=== PATIENT | female | born 1955 | race Asian ===

== ENCOUNTER 2018-07-04 04:03 | Inpatient (IN) | payer OTHER ==
[2018-07-04] MEDS ORDERED: ONDANSETRON 4 MG INJ IV ×2 (05:00→20:00)
[2018-07-04] MEDS ORDERED: NACL 0.9% 3 ML SYG IV (05:00)
[2018-07-04] MEDS ORDERED: morphine 2 MG INJ IV (05:00)
[2018-07-04] MEDS ORDERED: BISACODYL (EC) 5 MG TAB PO (05:00)
[2018-07-04] MEDS ORDERED: DOCUSATE SODIUM 100 MG CAP PO (05:00)
[2018-07-04] MEDS ORDERED: ACETAMINOPHEN 325 MG TAB PO (05:00)
[2018-07-04 05:25] LABS: ADD MAN DIFF? NO
[2018-07-04 05:33] LABS: BASOPHILS % 0.2 % (0.0-2.0); HEMATOCRIT 40.4 % (37.0-47.0); HEMOGLOBIN 13.9 g/dl (12.0-16.0); LYMPHOCYTES # 1.1 10^3/ul (0.8-2.9); MEAN CORPUSCULAR HEMOGLOBIN 29.8 pg (29.0-33.0); MEAN CORPUSCULAR HGB CONC 34.4 g/dl (32.0-37.0); MEAN CORPUSCULAR VOLUME 86.7 fl (82.0-101.0); MEAN PLATELET VOLUME 10.3 fl (7.4-10.4); MONOCYTE # 0.9 10^3/ul (0.3-0.9); NEUTROPHILS % 86.5 % (39.0-77.0); PLATELET COUNT 195 10^3/UL (140-415); RED BLOOD COUNT 4.66 10^6/ul (4.20-5.40); RED CELL DISTRIBUTION WIDTH 12.3 % (11.5-14.5)
[2018-07-04 05:47] LABS: HEMOGLOBIN A1C 5.7 % (0-5.9)
[2018-07-04 05:48] LABS: MAGNESIUM 1.7 mg/dl (1.7-2.5)
[2018-07-04 05:49] LABS: ALANINE AMINOTRANSFERASE 12 IU/L (13-69); ALBUMIN 4.4 g/dl (3.3-4.9); ALBUMIN/GLOBULIN RATIO 1.37; ALKALINE PHOSPHATASE 70 IU/L (42-121); ANION GAP 18 (8-16); ASPARTATE AMINO TRANSFERASE 23 IU/L (15-46); BILIRUBIN,INDIRECT 1.1 mg/dl (0-1.1); BILIRUBIN,TOTAL 1.1 mg/dl (0.2-1.3); BLOOD UREA NITROGEN 12 mg/dl (7-20); CALCIUM 8.8 mg/dl (8.4-10.2); CARBON DIOXIDE 23 mmol/L (21-31); CHLORIDE 104 mmol/L (97-110); CREATININE 0.52 mg/dl (0.44-1.00); GLUCOSE 126 mg/dl (70-220); POTASSIUM 3.5 mmol/L (3.5-5.1); SODIUM 141 mmol/L (135-144); TOTAL PROTEIN 7.6 g/dl (6.1-8.1)
[2018-07-04] MEDS: PIPER-TAZO 3.375 GM IV (PMX) 100 ML IVPB ×3 (06:27→18:17)
[2018-07-04] MEDS: SOD CHLORIDE 0.9% 1,000 ML IV ×2 (06:28→17:17)
[2018-07-04] MEDS ORDERED: KETOROLAC 30 MG INJ IV (07:00)
[2018-07-04] MEDS ORDERED: ONDANSETRON 4 MG INJ (19:00)
[2018-07-04] MEDS ORDERED: SUGAMMADEX SODIUM 200 MG/2 ML VIAL IV (19:00)
[2018-07-04] MEDS ORDERED: ROCURONIUM 50 MG INJ (19:00)
[2018-07-04] MEDS ORDERED: MIDAZOLAM 1 MG/ML 2 ML INJ (19:00)
[2018-07-04] MEDS ORDERED: DEXAMETHASONE 4 MG/ML 1 ML INJ (19:00)
[2018-07-04] MEDS ORDERED: FENTAnyl 50 MCG/ML VIAL (19:00)
[2018-07-04] MEDS ORDERED: LABETALOL HCL 20MG INJ (19:00)
[2018-07-04] MEDS ORDERED: PROPOFOL 200 MG INJ (19:00)
[2018-07-04] MEDS ORDERED: LIDOCAINE 2% (SDV) 5 ML INJ (19:00)
[2018-07-04] MEDS ORDERED: ALBUTEROL 0.083% (NEB) 2.5 MG/3 ML AMP HHN (20:00)
[2018-07-04] MEDS ORDERED: DIPHENHYDRAMINE 50 MG INJ IV (20:00)
[2018-07-04] MEDS ORDERED: EPHEDrine SULFATE 50 MG/5 ML SYG IV (20:00)
[2018-07-04] MEDS ORDERED: FENTAnyl 50 MCG/ML VIAL IV ×3 (20:00)
[2018-07-04] MEDS ORDERED: TRIMETHOBENZAMIDE 100 MG/ML VIAL IM (20:00)
[2018-07-04] MEDS ORDERED: MIDAZOLAM 1 MG/ML 2 ML INJ IV (20:00)
[2018-07-04] MEDS ORDERED: IPRATROPIUM (NEB) 0.5 MG/2.5 ML AMP HHN (20:00)
[2018-07-04] MEDS ORDERED: MEPERIDINE 25 MG INJ IV (20:00)
[2018-07-04] MEDS ORDERED: HYDROmorphONE 1 MG/5 ML IV SYRINGE IV ×3 (20:00)
[2018-07-04] MEDS ORDERED: hydrALAzine 20 MG INJ IV (20:00)
[2018-07-04] MEDS: LIDOCAINE 1% (MPF) 30 ML INJ (20:24)
[2018-07-04] MEDS: BUPIVACAINE 0.25%/EPI (SDV) 30 ML INJ (20:24)
[2018-07-04] MEDS: LABETALOL HCL 20MG INJ IV (21:31)
[2018-07-05] MEDS: PIPER-TAZO 3.375 GM IV (PMX) 100 ML IVPB ×4 (00:13→18:00)
[2018-07-05] MEDS: SOD CHLORIDE 0.9% 1,000 ML IV (03:59)
[2018-07-05 08:07] LABS: ADD MAN DIFF? NO
[2018-07-05 08:16] LABS: WHITE BLOOD COUNT 8.2 10^3/ul (4.8-10.8)
[2018-07-05 08:16] LABS: BASOPHILS % 0.1 % (0.0-2.0); HEMATOCRIT 39.2 % (37.0-47.0); HEMOGLOBIN 13.1 g/dl (12.0-16.0); LYMPHOCYTES % 12.3 % (15.0-51.0); MEAN CORPUSCULAR HEMOGLOBIN 29.7 pg (29.0-33.0); MEAN CORPUSCULAR HGB CONC 33.4 g/dl (32.0-37.0); MEAN CORPUSCULAR VOLUME 88.9 fl (82.0-101.0); MEAN PLATELET VOLUME 10.5 fl (7.4-10.4); MONOCYTE # 0.2 10^3/ul (0.3-0.9); MONOCYTES % 2.1 % (0.0-11.0); NEUTROPHILS % 85.3 % (39.0-77.0); PLATELET COUNT 180 10^3/UL (140-415); RED BLOOD COUNT 4.41 10^6/ul (4.20-5.40); RED CELL DISTRIBUTION WIDTH 12.6 % (11.5-14.5)
[2018-07-05 08:33] LABS: CHOL/HDL RATIO 3.2 RATIO; CHOLESTEROL 197 mg/dl (100-200); HDL CHOLESTEROL 61 mg/dl (35-98); LDL CHOLESTEROL,CALCULATED 124 mg/dl; TRIGLYCERIDES 59 mg/dl (0-149)
[2018-07-05 08:33] LABS: PHOSPHORUS 4.3 mg/dl (2.5-4.9)
[2018-07-05 08:51] LABS: ALANINE AMINOTRANSFERASE 13 IU/L (13-69); ALBUMIN 3.9 g/dl (3.3-4.9); ALBUMIN/GLOBULIN RATIO 1.21; ALKALINE PHOSPHATASE 56 IU/L (42-121); ANION GAP 15 (8-16); ASPARTATE AMINO TRANSFERASE 20 IU/L (15-46); BILIRUBIN,INDIRECT 0.9 mg/dl (0-1.1); BILIRUBIN,TOTAL 0.9 mg/dl (0.2-1.3); BLOOD UREA NITROGEN 12 mg/dl (7-20); CALCIUM 8.7 mg/dl (8.4-10.2); CARBON DIOXIDE 24 mmol/L (21-31); CHLORIDE 106 mmol/L (97-110); GLUCOSE 126 mg/dl (70-220); POTASSIUM 3.8 mmol/L (3.5-5.1); SODIUM 141 mmol/L (135-144); TOTAL PROTEIN 7.1 g/dl (6.1-8.1)
[2018-07-05 09:32] LABS: CANCER ANTIGEN 125 < 5.5 U/ml (0.0-35.0)
[2018-07-05] MEDS: hydrALAzine 20 MG INJ IV (19:45)
[2018-07-06 12:07] LABS: CA27.29 <8 U/mL (<38)
[2018-07-10 00:32] LABS: CANCER ANTIGEN 15-3 6 U/mL (<32)
== END 2018-07-05 21:15 | disposition home or self-care (01) | DRG 343 ==
LOC: 2NE 04:03
PROC: 0DTJ4ZZ Resection of Appendix, Percutaneous Endoscopic Approach (ICD-10-PCS; principal; 2018-07-04 19:52)
DX: K35.80 Unspecified acute appendicitis (principal); D72.829 Elevated white blood cell count, unspecified; D25.9 Leiomyoma of uterus, unspecified; K76.0 Fatty (change of) liver, not elsewhere classified; I10 Essential (primary) hypertension; R19.09 Other intra-abdominal and pelvic swelling, mass and lump; F41.9 Anxiety disorder, unspecified
CPT/HCPCS: 80053; 80061; 83036; 83735; 84100; 84443; 85025; 86300; 86301; 86304; 88304

== ENCOUNTER 2018-10-11 11:59 | Day surgery (SDC) | payer OTHER ==
[2018-10-11] MEDS ORDERED: PROPOFOL 40 ML (15:09)
== END 2018-10-11 19:31 | disposition home or self-care (01) ==
LOC: GIL 11:59
DX: Z12.11 Encounter for screening for malignant neoplasm of colon (principal); D12.4 Benign neoplasm of descending colon; K64.8 Other hemorrhoids
CPT/HCPCS: 45380; 88305

== ENCOUNTER 2019-06-25 14:06 | Inpatient (IN) | payer OTHER ==
[2019-06-25] MEDS: hydrALAzine 20 MG INJ IV ×3 (15:27→18:07)
[2019-06-25] MEDS: LACTATED RINGER'S 1,000 ML IV (15:29)
[2019-06-25] MEDS ORDERED: ROPIVACAINE 0.2% 20 ML VIAL (16:38)
[2019-06-25] MEDS ORDERED: MIDAZOLAM 1 MG/ML 2 ML INJ (16:38)
[2019-06-25] MEDS ORDERED: PROPOFOL 0 ML (16:38)
[2019-06-25] MEDS ORDERED: CEFAZOLIN 1 GM INJ (16:38)
[2019-06-25] MEDS ORDERED: FENTAnyl 50 MCG/ML VIAL (16:38)
[2019-06-25] MEDS ORDERED: ROCURONIUM 50 MG INJ (16:38)
== END 2019-06-25 19:03 | disposition home or self-care (01) | DRG 376 ==
LOC: REC 14:06
DX: D49.0 Neoplasm of unspecified behavior of digestive system (principal); I10 Essential (primary) hypertension; Z53.8 Procedure and treatment not carried out for other reasons
CPT/HCPCS: 86850; 86900; 86901